=== PATIENT | female | born 1990 | race Caucasian/White ===

== ENCOUNTER 2022-01-13 09:01 | Outpatient (CLI) | payer BC, SELFPAY ==
--- NOTE | 2022-01-13 09:15 | CRLHL7_ITS ---
For Patients: As a result of the Century Cures Act, medical imaging exams and procedure reports are released immediately into your electronic medical record. You may view this report before your referring provider. If you have questions, please contact your health care provider. INDICATION: Evaluate anatomy. COMPARISON: 11/25/2021 TECHNIQUE: Real time lay scale imaging of the fetus was performed as well as color Doppler analysis of the umbilical vessels. FINDINGS: Sonographic imaging demonstrates a single living intrauterine gestation. Fetus demonstrates a regular cardiac rate of 157 beats per minute. Fetus has a robby breech position. The placenta lies posteriorly without evidence of placenta previa. The edge of the placenta is located 3.2 cm from the internal cervical os. Amniotic fluid volume appears normal. Single deepest vertical pocket: 4.2 cm. The cervix is closed and measures 4.3 cm in length. The composite ultrasound gestational age is calculated at 19 weeks 2 days with an estimated sonographic due date of 06/07/2022. The estimated weight is 297 grams which lies at the 68th %. The following biometric measurements were obtained: Biparietal diameter: 4.3 cm/19 weeks 0 days 48th% Head circumference: 16.2 cm/19 weeks 0 days 34th% Abdominal circumference: 14.7 cm/20 weeks 0 days 74th% Femur length: 3.0 cm/19 weeks 1 day 41st% The HC/AC ratio measures: 1.10 range (1.09-1.26) On anatomic survey, there is a normal appearance of the cerebral ventricles, cavum septi pellucidi, cisterna magna and cerebellum. The nose, lips, and facial profile appear normal. The cervical, thoracic and lumbar spine are well visualized and appear normal. There is a normal four-chamber heart view and the left and right ventricular outflow tracts appear normal. The diaphragm and stomach appear normal. The kidneys and bladder also appear normal. There is a normal three-vessel cord and cord insertion site. The four extremities appear normal. IMPRESSION: Normal OB ultrasound exam with concordance of clinical and sonographic dating. No intrinsic abnormalities noted on anatomic survey. Dictated by Leroy Meza MD @ 01/13/2022 10:12:34 AM (Electronically Signed)
== END 2022-01-13 09:02 | disposition home or self-care (01) ==
LOC: US 09:03
PROVIDERS: Visit Provider Physician Assistant
DX: Z34.92 Encounter for supervision of normal pregnancy, unspecified, second trimester (principal); Z3A.19 19 weeks gestation of pregnancy
CPT/HCPCS: 76805

== ENCOUNTER 2022-03-10 12:03 | Outpatient (CLI) | payer BC, SELFPAY ==
[2022-03-12 09:59] LABS: Rapid Plasma Reagin (RPR) Non Reactive (Non Reactive)
== END 2022-03-10 12:04 | disposition home or self-care (01) ==
PROVIDERS: Visit Provider Obstetrics & Gynecology
DX: Z34.82 Encounter for supervision of other normal pregnancy, second trimester (principal); Z67.91 Unspecified blood type, Rh negative; Z3A.27 27 weeks gestation of pregnancy
CPT/HCPCS: 86592; 86850

== ENCOUNTER 2022-05-12 11:07 | Outpatient (CLI) | payer BC, SELFPAY ==
[2022-05-14 17:43] LABS: Strep B DNA Probe NEGATIVE (Negative)
== END 2022-05-12 11:08 | disposition home or self-care (01) ==
LOC: NFLDREF 11:07
PROVIDERS: Visit Provider Advanced Practice Midwife
DX: Z34.83 Encounter for supervision of other normal pregnancy, third trimester (principal)
CPT/HCPCS: 87081; 87653

== ENCOUNTER 2022-06-06 02:48 | Inpatient (IN) | payer BC, SELFPAY ==
[2022-06-06] VITALS (29 sets, daily range): BP systolic 96–142; BP diastolic 55–77; PULSE 66–146; RESP 16–18; TEMP 36.6–37.1; O2SAT 85–100; BMI 33.9
[2022-06-06] MEDS: LACTATED RINGERS 1000 ML 1,000 ML IV (03:10)
--- NOTE | 2022-06-06 03:25 | P.LDBA_ITS ---
Subjective History of Present Illness Narrative: Patient is being admitted to Labor and Delivery for active labor. She is a 31 year old at 39.5 weeks gestation. Her full history and physical was dictated by Paige Obregon CNM on 05/19/22. Please see this for details. She has been thu on and off since her membrane sweep on Sunday. Her contractions have increased overnight in intensity and frequency. She denies leaking fluid or bleeding. Baby is active but she states that the movements have been smaller. She is requesting an epidural. 1. Depression and anxiety Stable on Wellbutrin XL 150 mg at new OB 2. Migraines 3. RH negative status NEEDS RhoGAM at 28 weeks: received at 27wks: 03/10/22 NEEDS RhoGAM PP: 4. Significant food aversions and decreased appetite * 19 lb weight loss at 15 weeks * 4 lb under 12 week gestation week at 23weeks * USN for efw at 32 weeks due to insufficient weight gain in : Declines at this time. Consider if fundal height lags. * EFW at 20 anatomy scan: 68% OB - H&P: Exam Physical Exam: Narrative: OBJECTIVE:? Vitals per EMR? Psychiatric:? Alert and oriented x3? HEENT:? Normocephalic, atraumatic? Neck:? Supple without adenopathy or thyromegaly? Lungs:? Clear to auscultation bilaterally? Heart:? Regular rate and rhythm, no murmur, rub or gallop? Abdomen:? Soft, nontender, and gravid? Extremities:? No edema or erythema? Pelvic:? SVE: 8cm/90%/+1? Membrane status:? intact? presentation:? vertex? FHT:? Moderate Variability.? Positive Accels.? No Decels. Baseline 145.? Sorgho:? Ctx Q1-2min? ?? OB - Problem Based A/P Additional Plan (1) Encounter for supervision of other normal , third trimester: Status: Acute (2) Rh negative, maternal: Status: Acute Plan ASSESSMENT:? at 39.5 weeks gestation? GBS negative RH negative? Uncomplicated ? ?? PLAN:? 1. Candidate for analgesia of choice. Planning epidural.?? 2. Anticipate ? 3. Expectant management at this time.? 4. IV in place for anticipated epdiral. 5. Intermittent monitoring until epidural placed? Delivery/Labor/Induction Plan Plan: expectant management
[2022-06-06 03:47] LABS: SARS PCR* Negative SARS-CoV-2 (Negative)
[2022-06-06] MEDS: ROPIVACAINE 0.2% 200 ML 400 MG EPIDURAL (04:00)
[2022-06-06] MEDS: LIDOCAINE 2% (PF) 5 ML VIAL EPIDURAL (04:02)
--- NOTE | 2022-06-06 04:05 | PM.ANBPRC ---
[facility] Medical History (Updated 06/02/22 @ 18:48 by Maddie Wilson CNM) Migraine Surgical History (Updated 05/19/22 @ 18:56 by Marge Obregon CNM) No significant past surgical history Family History (Updated 05/19/22 @ 18:57 by Marge Obregon CNM) Mother Antiphospholipid antibody syndrome Social History (Updated 05/19/22 @ 18:58 by Marge Obregon CNM) Narrative: SOCIAL HISTORY: Occupation: Accounting. Marital status: .. Jew/cultural needs: no. Chemical or radiation exposure: no. Pre- tobacco use: no. Pre- alcohol use: 2 per month. Current tobacco use: no. Current alcohol use: no. Recreational drug use: no. Dietary restrictions: no. Blood transfusion acceptable in an emergency: yes PSYCHOSOCIAL HISTORY: History of depression or currently depresses: Yes. Current physical, emotional, or sexual mistreatment: No. Problems that will make it hard to make it to appointments: No. Smoking Status: Never smoker Meds Home Medications and Allergies Home Medications Medication Instructions Recorded Confirmed Type bupropion HCl 150 mg 24 hr tablet, 150 mg PO DAILY 01/13/22 06/02/22 History extended release docosahexaenoic acid 200 mg 200 mg PO DAILY 01/13/22 06/02/22 History capsule ( DHA) Allergies Allergy/AdvReac Type Severity Reaction Status Date / Time penicillin G Allergy Severe Rash Verified 06/02/22 10:16 amoxicillin Allergy Unknown Rash Verified 06/02/22 10:16 Results Labs Labs: Laboratory Results - last 24 hr 06/06/22 03:00 SARS-CoV-2 (PCR) Negative SARS-CoV-2 Vital Signs Vital Signs: Last Vital Signs Pulse 90 06/06/22 04:03 BP 129/60 06/06/22 04:03 Pulse Ox 89 06/06/22 03:51 Anesthesia Procedures Epidural Insertion Patient Location: OB Start Time: 03:30 Stop Time: 04:10 Start Date: 06/06/22 Stop Date: 06/06/22 Reason for Block: procedure for pain Patient Position: sitting Performed By: Memo Renteria Preanesthetic Checklist: IV checked, site marked, risks and benefits discussed, surgical consent, monitors and equipment checked, pre-op evaluation, timeout performed and anesthesia consent Monitoring: blood pressure monitoring and continuous pulse oximetry Approach: midline Vertebral Space: lumbar (1-5) Epidural Technique: JOBY saline Needle Type: Tuohy needle Injection Technique: continuous catheter Needle gauge: 17 Needle Length (cm): 10 cm Needle Insertion Depth (cm): 6 Catheter Type: multi-orifice Catheter at skin depth (cm): 11 Test Dose Result: negative and lidocaine 1.5% with epinephrine 1 to 200,000
[2022-06-06] MEDS: OXYTOCIN 30 unit/500 ML in NS 30 UNIT/500 ML BAG 300 UNIT IVPB (04:50)
[2022-06-06] MEDS: LIDOCAINE 1% MDV 20 ML INJECTION (05:12)
--- NOTE | 2022-06-06 05:48 | PM.OBPRCVD ---
Procedure Delivery date: 06/06/22 Procedure Done: Global Procedure Details: Patient is a 31 year-old G2 now P2 admitted on 06/06/22 at 39 Weeks, 5 Days gestation for active labor at term.? Cervical exam on admission was 7-8 cm/80 % effaced/0 station with membranes intact in vertex presentation.? Contractions were every 1-3 minutes.? heart rate demonstrated baseline 135 bpm with moderate variability, + accelerations, - decelerations; a category 1 tracing.? SROM occurred at 042 with clear fluid.?She requested an epidural. She received relief on her left side only from the epidural but was then found to be ready to push. She was had a small anterior rim but was feeling the urge to push and was easily able to push past the cervix. She pushed effectively to . A loose nuchal cord was easily reduced after delivery of the head. ?? Labor Analgesia:? Epidural but did not work before delivery? ?? Pitocin:? Yes after delivery only? ?? Labor onset:? unknown? ?? Complete:? presumed with pushing? ?? Pushing:? 0432? ?? heart tones during second stage were category 2. Prolonged decelerations heard to the 60's with return to baseline of 110 with .?Good maternal effort was being made. ?? At 0449 a viable male delivered in vertex ELIAS presentation restituting to BÁRBARA before full delivery of the head over intact perineum via spontaneous vaginal delivery.? Infant was placed on maternal abdomen.? Cord was clamped and cut immediately due to color, lack of tone, and no respiratory effort.? Baby was immediately brought to the warmer. Nose and mouth were bulb suctioned.? weight pending.? 2 at 1 minute and 9 at 5 minutes.? Shoulder dystocia: no.? Nuchal cord: loose 1x, reduced before delivery of the shoulders. ? ?? Placenta delivered spontaneously and complete at 0454 with a 3 vessel cord.?True knot in the cord was noted after delivery of the placenta. There was also noted to be two amniotic sacs surrounding the placenta. ?? Mother and were stable after delivery.? ?? Lacerations:? 2nd degree perineal and right labial, repaired with 3.0 and 4.0 Vicryl.? ?? Blood loss: 150 mL.? Blood loss measurement type: QBL? Sponge and needles counts are correct. Events: Other (no weight gain in ) Intrapartal Events: None Delivery monitor: external FHT and external uterine Route of delivery: Episiotomy description: None Laceration description: Labial (right labial tear repaired) Delivery repair: Vicryl Estimated blood loss (mL): 150 Anesthesia type: Epidural (not effective and any effects completly before delivery ) Disposition: floor [place] Infant Gender: Male presentation: vertex Placental Delivery Description: Spontaneous Cord Description: 3 Vessels, Nuchal Cord, True Knot, Loose and Reduced OB Vag Delivery Procedures Additional Procedures NST: Yes Laceration Repair: Yes
[2022-06-06] MEDS: IBUPROFEN 600 MG TABLET PO ×3 (07:46→20:08)
[2022-06-06] MEDS: ACETAMINOPHEN 500 MG TABLET 1000 MG PO ×2 (16:57→23:05)
[2022-06-07] MEDS: IBUPROFEN 600 MG TABLET PO (02:04)
[2022-06-07 05:00] VITALS: BP 111/70; PULSE 79; RESP 16; TEMP 36.6; O2SAT 99
[2022-06-07 07:24] LABS: Hemoglobin* 11.7 gm/dL (12.0-16.0)
[2022-06-07] MEDS: ACETAMINOPHEN 500 MG TABLET 1000 MG PO (08:15)
[2022-06-07 08:30] VITALS: BP 102/68; RESP 16; TEMP 36.6
--- NOTE | 2022-06-07 08:33 | P.DS_ITS ---
DS: Providers Provider Date Seen: 06/07/22 Date of admission: 06/06/22 02:48 Primary care physician: Not a Local Provider Admitting Clinician: Marjan Shah CNM Attending Physician on discharge: Marge Obregon CNM Date of Discharge: 06/07/22 DS: Diagnosis Discharge Diagnosis (1) Rh negative, maternal: Status: Acute (2) Depression with anxiety: Status: Acute (3) Lactating mother: Status: Acute (4) care and examination immediately after delivery: Status: Acute (5) Status post vaginal delivery: Status: Acute Exam Const: Vital Signs, click to edit/add: Vital Signs - 24 hr 06/06/22 11:49 06/06/22 19:30 06/06/22 23:23 Temperature 97.9 F 98.7 F 97.8 F Pulse Rate [Right Pulse Oximeter] 69 72 67 Respiratory Rate 16 16 16 Blood Pressure [Ri ght Arm] 102/63 96/59 L 104/62 Pulse Oximetry 97 98 96 Oxygen Delivery Me thod Room Air Room Air Room Air 06/07/22 05:00 Temperature 97.9 F Pulse Rate [Right Pulse Oximeter] 79 Respiratory Rate 16 Blood Pressure [Ri ght Arm] 111/70 Pulse Oximetry 99 Oxygen Delivery Me thod Room Air Documenting provider has reviewed patient's vital signs: yes Common normals: no apparent distress, oriented x3, healthy appearing and alert HENMT: Common normals: normocephalic Head and scalp: normocephalic Eye: Common normals: PERRL Pupil: PERRL Neck & C-Spine: Common normals: full ROM and supple Chest: Common normals: inspection of chest normal Resp: Common normals: normal respiratory effort and clear to auscultation bilaterally Auscultation: clear to auscultation bilaterally Cardio: Common normals: regular rate and regular rhythm Rate: regular rate Rhythm: regular rhythm GI: Common normals: soft to palpation Inspection: normal to inspection Palpation: soft : OB/external & speculum: Yes perineal/vaginal laceration Laceration: 2nd (well approximated) Uterus: U/1 Lochia: small Back & Pelvis: Common normals: thoracic and lumbar spine normal to inspection Extremity: Common normals: normal to inspection and full ROM Neuro: Common normals: oriented x3 Sensorium/orientation: alert Speech: speech normal Psych: Common normals: mental status grossly normal, thought process normal, speech normal and activity/motor behavior normal Speech: normal speech Thought process: normal thought process Skin: Common normals: no rashes or lesions noted General skin exam: no rashes or lesions noted OB - DS: Summary Hospital Course Hospital Course: The patient is a 31 year old G 2 P 2 at 39 5/7 weeks gestation that was admitted to the [facility] on 06/06/22 for spontaneous onset of labor. She had an uncomplicated vaginal delivery. She delivered a viable male . the patient has done well. The pain is well controlled with current medications.? She has no new complaints.? Urinary output is adequate and she is voiding without difficulty.? Has a good appetite, is tolerating a general diet, is passing flatus, and has had a bowel movement.? Has small amount of rubra lochia.? She is ambulating well. She is and reports it is going well. Peripartum Data delivery method: Vaginal Laceration description: Perineal - 2nd Degree [place] Gender: Male Infant Discharge Plan: Home Status at Discharge Functional status at discharge: independent ambulation Overall status at discharge: patient is progressing back to baseline Time Spent with Patient Time attestation: Total time spent providing and/or coordinating discharge services: Time spent: Less than 30 minutes Discharge Plan Discharge Disposition: Home, Self-Care Date of Admission: 06/06/22 02:48 Primary Care Provider: Provider,Not a Local Condition: Stable Anticipated Discharge Date/Time: 06/07/22 12:00 Discharge Medications: New acetaminophen 500 mg Tablet 1,000 mg PO Q6H PRN (Reason: pain/fever) Qty: 0 0RF docusate sodium 100 mg Capsule 100 mg PO DAILY Qty: 0 0RF ibuprofen 600 mg Tablet 600 mg PO Q6H PRNQty: 60 0RF Continued DHA 200 mg capsule 200 mg PO DAILY bupropion HCl 150 mg tablet extended release 24 hr 150 mg PO DAILY Discharge Orders: Discharge Order (Routine); Ordered 06/07/22 Ordered By: Marge Obregon Patient Education: OB Vaginal/Breast Feeding Additional Instructions: Discharge instructions were reviewed with the patient including signs and symptoms of infection and home going medications Nothing vaginally for 6 weeks: no tampons or intercourse Do not drive while taking narcotic pain medication(s) Off Work or School for 6 weeks 2-week visit: discuss infant feeding concerns, review control options and screen for anxiety/depression. 6-week visit for an annual exam. consultation services are available to all mothers and babies for the first year after delivery.? To make an appointment, please call [phone]. Activity Level: Activity as Tolerated Discharge Diet: Regular Follow Up Appointments: [facility] [Provider Group] (2 weeks and 6 weeks ) Forms: [employer] Info Instructions
[2022-06-07 10:12] VITALS: BP 106/61; PULSE 82; RESP 16; TEMP 36.6; O2SAT 99
== END 2022-06-07 12:37 | disposition home or self-care (01) | DRG 560 ==
LOC: OB OUT 02:51 → OB 02:51 → OB OUT 03:22 → OB 03:22
PROVIDERS: Advanced Practice Midwife; Admitting Provider Advanced Practice Midwife; Visit Provider Advanced Practice Midwife
DX: O99.344 Other mental disorders complicating childbirth (principal); F32.A Depression, unspecified; F41.9 Anxiety disorder, unspecified; O76 Abnormality in fetal heart rate and rhythm complicating labor and delivery; O70.1 Second degree perineal laceration during delivery; Z3A.39 39 weeks gestation of pregnancy; Z37.0 Single live birth; O69.2XX0 Labor and delivery complicated by other cord entanglement, with compression, not applicable or unspecified
CPT/HCPCS: 01967; 36415; 36430; 85018; 85461; 87635; A9270; J2791; J2795; J7120

== ENCOUNTER 2022-12-20 10:00 | Outpatient (RCR) | payer BC, SELFPAY | END 2023-04-19 23:59 | disposition home or self-care (01) | PROVIDERS: Visit Provider Advanced Practice Midwife | DX: N81.89 Other female genital prolapse (principal); R53.1 Weakness; R27.9 Unspecified lack of coordination; N39.3 Stress incontinence (female) (male); Z51.89 Encounter for other specified aftercare | CPT/HCPCS: 97110; 97140; 97162; 97535 ==

== ENCOUNTER 2024-02-15 09:32 | Outpatient (CLI) | payer BC, SELFPAY | END 2024-02-15 09:33 | disposition home or self-care (01) | LOC: NFLDREF 09:33 | PROVIDERS: Visit Provider Midwife | DX: R30.0 Dysuria (principal); N76.0 Acute vaginitis | CPT/HCPCS: 87086 ==

== ENCOUNTER 2025-02-13 08:18 | Outpatient (CLI) | payer BC, SELFPAY ==
[2025-02-14 23:52] LABS: HPV Source Cervix
[2025-02-17 11:52] LABS: Pap Test Digital Imaging Done
== END 2025-02-13 08:19 | disposition home or self-care (01) ==
PROVIDERS: Visit Provider Registered Nurse
DX: Z12.4 Encounter for screening for malignant neoplasm of cervix (principal); Z11.51 Encounter for screening for human papillomavirus (HPV)
CPT/HCPCS: 87624; 87625; 88141; 88142; 88175